=== PATIENT | female | born 1950 | race Caucasian/White ===

== ENCOUNTER 2021-01-11 06:24 | Day surgery (SDC) | payer OTHER, BC ==
[2021-01-05 12:12] VITALS: BMI 25.7
[2021-01-11] MEDS: CYCLOPENTOLATE 2% OPHTH SOLN 2 ML BOTTLE ONE ×3 (07:05→07:15)
[2021-01-11] MEDS: CIPROFLOXACIN 0.3% EYE DROPS 5 ML BOTTLE ONE ×3 (07:05→07:15)
[2021-01-11] MEDS: PHENYLEPHRINE 2.5% OPHTH SOLN 15 ML BOTTLE ONE ×3 (07:05→07:15)
[2021-01-11] MEDS: TROPICAMIDE 1% OPHTH SOLN 15 ML BOTTLE ONE ×3 (07:05→07:15)
[2021-01-11] MEDS ORDERED: BSS (NA/CA/MG/K) BALANCED SALT SOLUTION OPHTH SOLN 15 ML BOTTLE ONE (07:24)
[2021-01-11] MEDS ORDERED: TETRACAINE 0.5% OPHTH SOLN 2 ML BOTTLE ONE (07:24)
[2021-01-11] MEDS ORDERED: LIDOCAINE 1% P/F 10 MG/ML VIAL ONE (07:24)
[2021-01-11] MEDS ORDERED: EPINEPHrine/PF 1 MG/1 ML (1:1,000) AMPULE ONE (07:24)
[2021-01-11] MEDS ORDERED: NEO/POLYMYX B SULF/DEXAMETH OPHTHALMIC 5ML BOTTLE ONE (07:24)
[2021-01-11] MEDS ORDERED: CARBACHOL 0.01% INTRA-OCULAR 1.5 ML VIAL ONE (07:24)
[2021-01-11] MEDS ORDERED: MIDAZOLAM HCL 2 MG/2 ML SINGLE DOSE VIAL ONE ×2 (07:42→08:19)
[2021-01-11] MEDS ORDERED: ONDANSETRON 4 MG/2 ML VIAL ONE (08:14)
[2021-01-11 08:44] VITALS: TEMP 98.3
[2021-01-11 09:10] VITALS: BP 131/61; PULSE 89
== END 2021-01-11 09:10 | disposition home or self-care (01) ==
LOC: FASU 06:24
PROVIDERS: ATTEND Ophthalmology
PROC: 08RJ3JZ Replacement of Right Lens with Synthetic Substitute, Percutaneous Approach (ICD-10-PCS; principal; 2021-01-11 08:18)
DX: H26.8 Other specified cataract (principal)
CPT/HCPCS: 82962